=== PATIENT | male | born 1995 | race Caucasian/White ===

== ENCOUNTER 2018-08-28 11:04 | Emergency (ER) | payer OTHER ==
[~2018-08-28] VITALS: Ht 177.8 cm; Wt 63.5 kg
[2018-08-28 11:06] VITALS: BP 144/86; Ht 177.8 cm; Wt 63.5 kg
== END 2018-08-28 12:30 | disposition left against medical advice (07) ==
LOC: ED 11:04
DX: Z53.21 Procedure and treatment not carried out due to patient leaving prior to being seen by health care provider (principal)